=== PATIENT | male | born 1975 | race Caucasian/White ===

== ENCOUNTER 2017-04-11 09:32 | Day surgery (SDC) | payer BC ==
[2017-04-10 08:41] VITALS: BMI 27.1
[~2017-04-11 09:32] MED LIST: LACTATED RINGERS 1,000 ML IV SCH
[2017-04-11 10:18] VITALS: RESP 16; TEMP 97.3
[2017-04-11] MEDS ORDERED: LIDOCAINE 1% 20 ML VIAL (10MG/ML) FOR IV START SQ ONE (10:21)
[2017-04-11] MEDS ORDERED: MIDAZOLAM 2 MG/2 ML VIAL ONE (10:33)
[2017-04-11] MEDS ORDERED: PROPOFOL 10 MG/ML 20 ML VIAL IV ONE (10:33)
[2017-04-11] MEDS ORDERED: LIDOCAINE 1% INJ 10MG/ML (20 ML MDV) ONE (10:33)
[2017-04-11] MEDS ORDERED: fentaNYL (PF) 50 MCG/ML 2 ML AMP ONE (10:33)
--- NOTE | 2017-04-11 10:55 | P.PCN ---
Date of Procedure: 04/11/17 Procedure(s) Performed: BRIEF HISTORY: Patient is a 42-year-old pleasant white male, scheduled for an elective colonoscopy as a part of evaluation of intermittent rectal bleeding for the last 6 months duration. PROCEDURE PERFORMED: Colonoscopy with biopsy. PREOPERATIVE DIAGNOSIS: Intermittent rectal bleeding. IV sedation per Anesthesia. PROCEDURE: After informed consent was obtained, the patient, was brought into the endoscopy unit. IV sedation was administered by Anesthesia under continuous monitoring. Digital rectal examination was normal. Initially the Olympus CF- 160 flexible video colonoscope was then inserted in the rectum, gradually advanced into the cecum without any difficulty. Careful examination was performed as the scope was gradually being withdrawn. Ileocecal valve and the appendiceal orifice were visualized and appeared normal. Prep was excellent. Mucosa of the cecum, ascending colon, appeared normal. In the transverse colon there was a 5 to polyp that was removed by biopsy. The rest of the transverse colon, descending colon, sigmoid colon, and rectum appeared normal. In the sigmoid colon there was another 5 mm polyp that was removed by biopsy. Retroflexion was performed in the rectum and no lesions were seen. The patient tolerated the procedure well. IMPRESSION: 5 mm transverse colon polyp status post removal by biopsy. 5 mm sigmoid polyp status post removal by biopsy. Recommendations: Findings of this examination were discussed with the patient as well as his family. He was advised to follow with the biopsy results. If the biopsy shows a tubular adenoma he can have a repeat colonoscopy in 5 years.
[2017-04-11 11:29] VITALS: BP 133/85; PULSE 78
== END 2017-04-11 11:36 | disposition home or self-care (01) ==
LOC: ORWHC2ENDO 09:32
PROVIDERS: ATTEND Internal Medicine Gastroenterology
DX: D12.3 Benign neoplasm of transverse colon (principal); D12.5 Benign neoplasm of sigmoid colon; Z88.6 Allergy status to analgesic agent; Z88.4 Allergy status to anesthetic agent
CPT/HCPCS: 88305; 45380; J2250; J2001; J3010; J2704

== ENCOUNTER → 2019-03-26 | Outpatient (CLI) | payer BC ==
--- NOTE | 2019-03-26 16:09 | US ---
EXAMINATION TYPE: US gallbladder DATE OF EXAM: 03/26/2019 COMPARISON: NONE CLINICAL HISTORY: R10.9 ABD Pain. Tenderness and bloating RUQ EXAM MEASUREMENTS: Liver Length: 16.3 cm. Normal less than 15.5 cm. Gallbladder Wall: 0.3 cm CBD: 0.4 cm Right Kidney: 10.4 x 5.8 x 5.2 cm Pancreas: Obscured by bowel gas Liver: appears wnl Gallbladder: no evidence of stones Evidence for sonographic Quinones's sign: no CBD: appears wnl Right Kidney: no evidence of hydronephrosis IMPRESSION: 1. Mild hepatomegaly
== END | disposition home or self-care (01) ==
LOC: RADUSWWP 07:02
PROVIDERS: ATTEND Internal Medicine
DX: R16.0 Hepatomegaly, not elsewhere classified (principal); R10.9 Unspecified abdominal pain
CPT/HCPCS: 76705

== ENCOUNTER → 2021-11-22 | Outpatient (CLI) | payer BC ==
--- NOTE | 2021-11-22 16:08 | US ---
EXAMINATION TYPE: US scrotum with doppler. DATE OF EXAM: 11/22/2021 COMPARISON: NONE CLINICAL HISTORY: 46-year-old male N50.812 LT TESTICULAR PAIN. TECHNIQUE: Grayscale and color Doppler Duplex imaging performed of the scrotum. FINDINGS: EXAM MEASUREMENTS: TESTICLES: Right Testicle: 4.8 x 2.3 x 3.2 cm Left Testicle: 4.2 x 2.0 x 2.6 cm EPIDIDYMIS HEAD: Right Epididymis: 1.0 cm Left Epididymis: 1.0 cm, small cyst measuring 0.3mm Doppler performed to assess for testicular vascularity; good bilateral color flow and waveforms are s een. There is no evidence of testicular torsion. Presence of hydroceles: no Presence of varicoceles: Prominent vessels within the left hemiscrotum dilated up to 3 mm on Valsalva suggesting varicoceles. IMPRESSION: 1. No sonographic evidence for testicular torsion or epididymoorchitis. 2. Small left-sided varicocele.
== END | disposition home or self-care (01) ==
LOC: RADUSWWP 12:22
PROVIDERS: ATTEND Family Medicine
DX: N50.812 Left testicular pain (principal); I86.1 Scrotal varices
CPT/HCPCS: 76870; 93975

== ENCOUNTER → 2023-10-08 | Outpatient (CLI) | payer BC ==
--- NOTE | 2023-10-08 10:26 | XR ---
EXAMINATION TYPE: XR foot complete RT DATE OF EXAM: 10/08/2023 10:21 AM INDICATION: Patient age:Male; 48 years old; Reason for study: M79.671 RIGHT FOOT PAIN; [facility]. COMPARISON: None TECHNIQUE: The right foot was examined in the AP, oblique, and lateral projections. FINDINGS: No evidence of any acute osseous pathology. No evidence of soft tissue swelling. Joints are preserve d. Incidental note is made of symphalangism of the fifth distal interphalangeal joint. No radiopaque foreign bodies. IMPRESSION: No evidence of acute fracture.
== END | disposition home or self-care (01) ==
LOC: RADXRMAIN 10:08
PROVIDERS: ATTEND Internal Medicine
DX: M79.671 Pain in right foot (principal)

== ENCOUNTER → 2024-08-17 | Outpatient (CLI) | payer BC ==
--- NOTE | 2024-08-30 21:01 | CT ---
EXAMINATION TYPE: CT chest w con DATE OF EXAM: 08/17/2024 COMPARISON: None HISTORY: Chronic cough CT DLP: 631 mGycm, Automated exposure control for dose reduction was used. CONTRAST: Performed injected with 100 mL of Isovue 300. TECHNIQUE: Axial images were obtained at 5 mm thick sections. Reconstructed images are reviewed on [employer] computer in the coronal plane. FINDINGS: There is a small hypodensity within the mid right lobe thyroid. This could be further evalu ated with ultrasound. No suspicious lung nodules or focal infiltrates are present. Tracheobronchial tree as visualized is n ormal No enlarged mediastinal or hilar adenopathy is evident. The ascending aorta diameter at the level o f the main pulmonary artery is 3.0 cm. The main pulmonary artery diameter at the bifurcation is 2.[address] sections are obtained through the upper abdomen. Abdomen is essentially unremarkable. IMPRESSION: 1. No acute pulmonary process. [facility], , 08/30/2024 8:59 PM
== END | disposition home or self-care (01) ==
LOC: RADCTMAIN 07:34
PROVIDERS: ATTEND Internal Medicine
DX: R05.3 Chronic cough (principal)
CPT/HCPCS: 71260